=== PATIENT | male | born 1980 | race Caucasian/White ===

== ENCOUNTER 2023-12-14 23:58 | Emergency (ER) | payer OTHER, SELFPAY ==
[2023-12-15] VITALS (10 sets, daily range): BP systolic 100–135; BP diastolic 53–98; BMI 31.1
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
[2023-12-15 00:52] LABS: ALT (SGPT) 18 U/L (0-50); AST (SGOT) 24 U/L (17-59); Albumin 4.6 g/dl (3.5-5.0); Alkaline Phosphatase 43 U/L (38-126); Blood Urea Nitrogen 21 mg/dl (9-20); Calcium 9.3 mg/dl (8.4-10.2); Carbon Dioxide 20 mmol/L (22-30); Chloride 97 mmol/L (98-107); Glucose 246 mg/dl (70-99); Potassium 3.7 mmol/L (3.5-5.1); Sodium 136 mmol/L (135-145); Total Bilirubin 0.4 mg/dl (0.2-1.3); Total Protein 6.8 g/dl (6.3-8.2); eGFR > 60.00
[2023-12-15 00:53] LABS: INR 1.08; PT 13.8 Sec (11.4-14.6)
[2023-12-15 00:54] LABS: APTT 24.2 Sec (23.4-35.0)
[2023-12-15 01:01] LABS: Hematocrit 37.5 % (39.0-52.0); Mean Corp Hgb Conc. 34.7 g/dL (33.0-37.0); Mean Corpuscular Hgb 29.7 pg (27.0-31.0); Mean Corpuscular Volume 85.8 fL (80.0-94.0); Mean Platelet Volume 10.4 fL (7.4-10.4); Platelet Count 381 10^3/uL (130-400); Red Blood Cell Count 4.37 10^6/uL (4.70-6.10); Red Cell Dist. Width 12.7 % (11.5-14.5); White Blood Cell Count 30.4 10^3/uL (4.8-10.8)
[2023-12-15] MEDS: NSS 1000 IV (01:09)
[2023-12-15] MEDS: SUBLIMAZE 50 MCG IV (02:03)
[2023-12-15 02:14] LABS: Absolute Neutrophils -Man Diff 25.2 10^3/uL (1.4-6.5); Band Neutrophils 11 % (0-3); Eosinophils 2 % (0-6); Lymphocytes 11 % (20-51); Monocytes 4 % (2-9); Segmented Neutrophils 72 % (42-75)
[2023-12-15 02:15] LABS: Normal RBC Morphology Yes; Platelets Checked Yes; Total Cells Counted 100
== END 2023-12-15 03:00 | disposition short-term general hospital (02) ==
LOC: EMR 23:58
PROVIDERS: EMERGENCY PHYSICIAN Student in an Organized Health Care Education/Training Program; FAMILY PHYSICIAN Internal Medicine
DX: S36.899A Unspecified injury of other intra-abdominal organs, initial encounter (principal); V89.2XXA Person injured in unspecified motor-vehicle accident, traffic, initial encounter
CPT/HCPCS: 99291; 96374; 96361; 70450; 71260; 72125; 74177; 80053; 85025; 85610; 85730; 86850; 86900; 86901; Q9967